=== PATIENT | female | born 1955 | race African-American/Black ===

== ENCOUNTER 2019-06-11 07:34 | Day surgery (SDC) | payer OTHER ==
[~2019-06-11] VITALS: Ht 167.6 cm; Wt 76.2 kg
[2019-06-11 08:03] VITALS: BP 116/73
[2019-06-11 12:04] VITALS: BP 123/71
== END 2019-06-11 12:20 | disposition home or self-care (01) ==
LOC: GI 07:34 → OR 09:00 → GI 12:20
DX: D37.4 Neoplasm of uncertain behavior of colon (principal); I10 Essential (primary) hypertension; Z88.2 Allergy status to sulfonamides; Z79.899 Other long term (current) drug therapy; Z98.890 Other specified postprocedural states; Z98.51 Tubal ligation status
CPT/HCPCS: 45378; J1200; J1610; J2250; J2310; J3010; J3490

== ENCOUNTER 2019-12-24 06:16 | Day surgery (SDC) | payer OTHER ==
[~2019-12-24] VITALS: Ht 165.1 cm; Wt 72.6 kg
[2019-12-24 06:55] VITALS: BP 108/58
[2019-12-24 10:51] VITALS: BP 100/69
== END 2019-12-24 10:35 | disposition home or self-care (01) ==
LOC: DS 06:16 → OR 08:00 → GI 08:00 → DS 10:35
DX: K63.5 Polyp of colon (principal); K63.89 Other specified diseases of intestine; Z79.899 Other long term (current) drug therapy; Z86.010 Personal history of colon polyps; Z98.891 History of uterine scar from previous surgery; Z98.890 Other specified postprocedural states
CPT/HCPCS: 45378; J1200; J1610; J2250; J2310; J3010; J3490